=== PATIENT | female | born 1985 | race Two or more races ===

== ENCOUNTER 2022-05-16 11:06 | Emergency (ER) | payer OTHER ==
[~2022-05-16] VITALS: Ht 160 cm; Wt 52.6 kg
[2022-05-16] MEDS ORDERED: DICLOFENAC SODI75 MG PO (17:49)
== END 2022-05-16 17:57 | disposition home or self-care (01) ==
LOC: ER 11:06
DX: N83.201 Unspecified ovarian cyst, right side (principal); R10.9 Unspecified abdominal pain